=== PATIENT | female | born 1950 | race African-American/Black ===

== ENCOUNTER 2019-09-17 19:51 | Emergency (ER) | payer MEDICAID, MEDICARE ==
[~2019-09-17] VITALS: Ht 162.6 cm; Wt 93.0 kg
[2019-09-17] MEDS ORDERED: KETOROLAC 30MG/ML VIAL IM ONE (21:30)
[2019-09-18 01:00] VITALS: BP 111/71
== END 2019-09-18 02:22 | disposition home or self-care (01) ==
LOC: ER 19:51
DX: M25.562 Pain in left knee (principal); M25.561 Pain in right knee; W18.30XA Fall on same level, unspecified, initial encounter; Y93.89 Activity, other specified; Y92.89 Other specified places as the place of occurrence of the external cause; Y99.8 Other external cause status
CPT/HCPCS: 73562; 96372; 99283; J1885

== ENCOUNTER 2025-01-04 19:17 | Emergency (ER) | payer MEDICARE, MEDICAID ==
[~2025-01-04] VITALS: Ht 165.1 cm; Wt 100.0 kg
[2025-01-04 19:23] VITALS: O2SAT 98
[2025-01-04] MEDS: IBUPROFEN 600MG TABLET PO ONE (22:00)
[2025-01-04] MEDS: LIDOCAINE 5% PATCH TOP SCH (22:00)
[2025-01-04 22:14] VITALS: TEMP 37.1
[2025-01-05] MEDS ORDERED: NAPR-1176 MT (00:11)
[2025-01-05] MEDS ORDERED: DICL100G58 TP (00:11)
[2025-01-05 00:37] VITALS: BP 105/63; PULSE 77; RESP 18; O2SAT 100
== END 2025-01-05 00:39 | disposition home or self-care (01) ==
LOC: ER 19:17
DX: M17.11 Unilateral primary osteoarthritis, right knee (principal); I10 Essential (primary) hypertension; Z79.1 Long term (current) use of non-steroidal anti-inflammatories (NSAID); Z79.899 Other long term (current) drug therapy; Z98.890 Other specified postprocedural states
CPT/HCPCS: 73564; 99283